=== PATIENT | female | born 1975 | race Caucasian/White ===

== ENCOUNTER 2022-05-11 14:06 | Outpatient (CLI) | payer OTHER, SELFPAY ==
[2022-05-11 17:21] LABS: Albumin* 4.3 g/dL (3.3-5.0); Chloride* 101 mmol/L (96-114); Sodium* 138 mmol/L (135-149)
[2022-05-11 17:23] LABS: Cholesterol* 192 mg/dL (90-199)
[2022-05-11 17:24] LABS: Alanine Aminotransferase* 18 U/L (4-35); Alkaline Phosphatase* 72 U/L (40-150); Aspartate Amino Transferase* 24 U/L (12-35); Bilirubin Total* 0.3 mg/dL (0.1-1.5); Blood Urea Nitrogen* 11 mg/dL (5-24); Carbon Dioxide* 27 mmol/L (20-32); Creatinine* 0.5 mg/dL (0.5-1.5); Estimated Glomerular Filt Rate 118 ml/min; Glucose* 162 mg/dL (60-115); Total Protein* 7.1 g/dL (6.0-8.3); Triglycerides* 204 mg/dL (40-149)
[2022-05-11 17:25] LABS: Calcium* 9.2 mg/dL (8.4-10.6); HDL Cholesterol* 50 mg/dL (>=50); LDL Cholesterol Calculated 101 mg/dL (<100)
[2022-05-11 17:52] LABS: Creatinine Urine 12.3 mg/dL
[2022-05-11 17:55] LABS: Microalbumin Creatinine Ratio 80 mg/g (0-30); Microalbumin Urine < 1 mg/dL
[2022-05-11 18:14] LABS: Vitamin B12* 903 pg/mL (243-894)
[2022-05-11 19:44] LABS: Hemoglobin A1C* 8.54 % (0-5.6)
[2022-05-12 16:09] LABS: Ferritin* 17.4 ng/mL (6.24-137.0)
== END 2022-05-11 14:07 | disposition home or self-care (01) ==
PROVIDERS: PCP Family Medicine; Visit Provider Family Medicine
DX: Z01.419 Encounter for gynecological examination (general) (routine) without abnormal findings (principal); E11.9 Type 2 diabetes mellitus without complications; E53.8 Deficiency of other specified B group vitamins; D64.9 Anemia, unspecified; E78.5 Hyperlipidemia, unspecified
CPT/HCPCS: 80053; 80061; 82043; 82570; 82607; 82728; 83036

== ENCOUNTER 2023-02-24 13:42 | Outpatient (CLI) | payer OTHER, SELFPAY ==
--- NOTE | 2023-02-24 14:00 | CRLHL7_ITS ---
For Patients: As a result of the Cures Act, medical imaging exams and procedure reports are released immediately into your electronic medical record. You may view this report before your referring provider. If you have questions, please contact your health care provider. BILATERAL SCREENING MAMMOGRAM WITH COMPUTER-AIDED DETECTION AND TOMOSYNTHESIS TECHNIQUE: CC and MLO views were obtained. These mammographic images have been obtained using full-field digital technique. These mammographic images were interpreted with the benefit of computer-aided detection. Breast Tomosynthesis was used in this interpretation. COMPARISON FILM: 11/25/21, 10/10/20, 02/16/19. FINDINGS: There are scattered areas of fibroglandular density IMPRESSION: There is no radiographic evidence for malignancy. ASSESSMENT: BI-RADS Category 1: Negative RECOMMENDATION: Routine screening mammogram in 1 year. A lay language report of this examination will be provided to the patient. Valeriano Sweeney M.D. Diagnostic Radiologist [email or web address] MANUELA/[email or web address] Transcribed: 5:00 p.mKeith armijo/Dictated by: Valeriano Sweeney MD @ 02/25/2023 1:18:00 PM (Electronically Signed)
== END 2023-02-24 13:43 | disposition home or self-care (01) ==
LOC: MAMMO 13:43
PROVIDERS: PCP Family Medicine; Visit Provider Family Medicine
DX: Z12.31 Encounter for screening mammogram for malignant neoplasm of breast (principal)
CPT/HCPCS: 77063; 77067

== ENCOUNTER 2023-04-27 07:30 | Outpatient (CLI) | payer OTHER, SELFPAY | END 2023-04-27 07:31 | disposition home or self-care (01) | LOC: NFLDREF 09:58 | PROVIDERS: PCP Family Medicine; Referring Provider Family Medicine; Visit Provider Family Medicine | DX: Z00.00 Encounter for general adult medical examination without abnormal findings (principal); E11.9 Type 2 diabetes mellitus without complications; D64.9 Anemia, unspecified; E53.8 Deficiency of other specified B group vitamins; E78.5 Hyperlipidemia, unspecified; R53.83 Other fatigue | CPT/HCPCS: 80053; 80061; 82043; 82570 ==

== ENCOUNTER 2023-05-03 11:45 | Outpatient (CLI) | payer OTHER, SELFPAY | END 2023-05-03 11:46 | disposition home or self-care (01) | LOC: NFLDREF 11:46 | PROVIDERS: PCP Family Medicine; Visit Provider Family Medicine | DX: R53.83 Other fatigue (principal) | CPT/HCPCS: 84439; 84443 ==

== ENCOUNTER 2024-03-07 13:45 | Outpatient (CLI) | payer OTHER, SELFPAY ==
--- NOTE | 2024-03-07 13:40 | CRLHL7_ITS ---
For Patients: As a result of the Century Cures Act, medical imaging exams and procedure reports are released immediately into your electronic medical record. You may view this report before your referring provider. If you have questions, please contact your health care provider. BILATERAL SCREENING MAMMOGRAM WITH COMPUTER-AIDED DETECTION AND TOMOSYNTHESIS TECHNIQUE: CC and MLO views were obtained. These mammographic images have been obtained using full-field digital technique. These mammographic images were interpreted with the benefit of computer-aided detection. Breast Tomosynthesis was used in this interpretation. COMPARISON FILM: 02/24/23, 11/25/21, 10/10/20. FINDINGS: There are scattered areas of fibroglandular density. IMPRESSION: There is no radiographic evidence for malignancy. ASSESSMENT: BI-RADS Category 1: Negative RECOMMENDATION: Routine screening mammogram in 1 year. A lay language report of this examination will be provided to the patient. Valeriano Sweeney M.D. Diagnostic Radiologist [email or web address] SP/Dictated by: Valeriano Sweeney MD @ 03/08/2024 9:18:00 AM (Electronically Signed)
== END 2024-03-07 13:46 | disposition home or self-care (01) ==
LOC: MAMMO 13:45
PROVIDERS: PCP Family Medicine; Visit Provider Family Medicine
DX: Z12.31 Encounter for screening mammogram for malignant neoplasm of breast (principal)
CPT/HCPCS: 77063; 77067

== ENCOUNTER 2024-05-10 07:38 | Outpatient (CLI) | payer OTHER, SELFPAY | END 2024-05-10 07:39 | disposition home or self-care (01) | LOC: NFLDREF 05-11 08:47 | PROVIDERS: PCP Family Medicine; Referring Provider Family Medicine; Visit Provider Family Medicine | DX: E11.9 Type 2 diabetes mellitus without complications (principal); E78.5 Hyperlipidemia, unspecified; R79.89 Other specified abnormal findings of blood chemistry | CPT/HCPCS: 80053; 80061; 82043; 82570; 84443 ==

== ENCOUNTER 2024-05-11 09:41 | Outpatient (CLI) | payer OTHER, SELFPAY ==
--- OUTSIDE RECORDS SUMMARY | 2024-05-11 09:47 | XMS_ITS | Clinical Summary ---
Author Organization [facility] Address [place], [place] [address] Care Team Providers Care Networking Technician Name Role Phone Unavailable Primary Care Provider Unavailabl e Allergies No known active allergies Medications Medication Sig Dispensed Refills Start Date End Date Status MULTIVITAMIN TAB take 1 tablet by oral route once daily with food 0 05/20/2007 Active ferrous sulfate 325 mg delayed release tablet Take 1 tablet by mouth once daily. 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, unspecified 05/20/2007 05/25/2007 Major depressive disorder, r ecurrent episode, unspecified 05/20/2007 07/05/2013 Anxiety state, unspecified 05/20/2007 1 09/04/2012 Migraine, unspecified, witho ut mention of intractable migraine without mention of status migrainosus 05/20/2007 06/06/2012 Overview (05/25/2007): slt abnormality on MRI consistant with migraine Immunizations Name Administration Dates Next Due Td (Age >=7 Years) 09/24/2003 Tdap 06/21/2015 Family History Medical History Relation Name Comments Hyperlipidemia Brother 1 also DM Good Health Brother 2 Diabetes Father d 72 yo Diabetes Mother b 1937 Good Health Sister 1 x 2 Hypertension Sister 2 x 1 also DM Relation Name Status Comments Brother 1 Brother 2 Father (Age 72) Complicati ons of T2DM Mother Alive Sister 1 Sister 2 Social History Tobacco Use Types Packs/Day Years Used Date Smoking Tobacco: Never Smokeless Tobacco: Never Tobacco Cessation:Counseling Given: Yes Alcohol Use Standard Drinks/Week Comments No 0 (1 standard drink = 0.6 oz pur e alcohol) Sex and Gender Information Value Date Recorded Sex Assigned at Not on file Gender Identity Not on file Sexual Orientation Not on file Obstetrics History Para Term AB IAB SAB Ectopic Multiple Livin g Live Births 4 3 3 0 1 0 1 0 0 3 Date Outcome GA Total Labor Labor/2nd/3rd Weight Sex Type Anes PTL Jeni A1 A5 Name Clin Term Term Term SAB Last Filed Vital Signs Vital Sign Reading Time Taken Comments Blood Pressure 99/62 03/09/2016 1:30 PM CDT Pulse 77 03/09/2016 1:30 PM CDT Temperature 36.9 ??C (98.4 ??F) 03/09/2016 1:30 PM CD T Respiratory Rate - - Oxygen Saturation 98% 03/09/2016 1:30 PM CDT Inhaled Oxygen Concentration - - Weight 59.3 kg (130 lb 12.8 oz) 03/09/2016 1:30 PM CDT Height 152 cm (4' 11.84) 03/09/2016 1:30 PM CDT Body Mass Index 25.68 03/09/2016 1:30 PM CDT Plan of Treatment Health Maintenance Due Date Last Done Comments HIV for age 15-65 1991 BMI (ht and wt on same day) for age 18+ 03/09/2017 03/09/2016 Depression screening for age 12+ 03/09/2017 03/09/2016 Colonoscopy through age 75 2021 Lipids for age 45-75 2021 06/21/2015, 12/20/2009, 12/20/2009, Additional history exists Mammogram for age 45-75 2021 09/24/2017 Pap test for age 21-65 05/19/2022 9, 05/19/2019, 02/14/2016, Additional history exists COVID-19 vaccine series (2022- season) 2024 Influenza for age 9-49 04/23/2024 Tetanus booster 06/21/2025 06/21/2015, 09/2003 (Completed outside of [facility]), 09/24/2003 Hepatitis C screening for age 18-79 Completed 12/20/2009 Tdap Completed 06/21/2015 Pneumococcal series for age 6-64 Aged Out No longer eligible based on patient's age to complete this topic Procedures Procedure Name Priority Date/Time Associated Diagnosis Comments TOOL SETTER THIN PREP PAP SCREEN IMAGED Routine 05/19/2019 10:15 AM CDT SCAN-MAMMOGRAPHY REPORT 09/24/2017 12:00 AM GETTER OPERATOR LIPID PANEL W REFLEX MEASURED LDL Routine 06/21/2015 9:01 AM CDT Healthcare maintenance ANTI HCV Routine 12/20/2009 5:00 PM CDT Elevated liver function tests from Last 3 Months or Most Recently Relevant to Health Maintenance Results * TOOL SETTER THIN PREP PAP SCREEN IMAGED (05/19/2019 10:15 AM CDT) Case Report Gynecologic Cytology Report ? Case: [id number] ? Authorizing Provider: ??Valeriano Mills MD ??Collected: ? 05/19/2019 1015 ? Ordering Location: ? [facility] ?Received: ?05/20/2019 1047 ? First Screen: ?Esperanza Berkowitz ? Pathologist: ? Pushpa Alberts MD ? Specimen: ?TOOL SETTER ThinPrep Vial Screening, Cervical/Vaginal ? 06/03/2019 1:00 PM CDT [facility] INTERPRETATION/ RESULT NEGATIVE FOR INTRAEPITHELIAL LESION OR MALIGNANCY (NIL) (none) 06/03/2019 1:00 PM CDT [facility] R NON-NEOPLASTIC FINDING(S) Reactive cellular changes associated with inflammation/repa ir 06/03/2019 1:00 PM CDT [facility] SPECIMEN ADEQUACY Satisfactory for evaluation Endocervical component present 06/03/2019 1:00 PM CDT [facility] HPV REQUEST HPV and PAP 06/03/2019 1:00 PM T [facility] Date of LMP 05/07/2019 06/03/2019 1:00 PM T [facility] Last Pap Date 02/14/2016 06/03/2019 1:00 PM CDT [facility] Last Pap Result NIL 9 1:00 PM [facility] Automated Review Successful 06/03/2019 1:00 PM T [facility] Comment:Specimen processed s uccessfully by automated environmental studies faculty member device, ThinPrep Imaging System, [employer] ANCILLARY TESTING TOOL SETTER HPV Ordered, Please see separate report 06/03/2019 1:00 PM T [facility] Note The pap test is a screening technique, not a diagnostic procedure. ??It is used primarily to screen for squamous cancers and precursor lesions. ??Published studies have shown that it is subject to both false negative and false positive results. ??The pap test should not be used as the sole means to diagnose or exclude pre-malignant and malignant lesions. Cytology is screened and interpreted at [facility] - [address], [place] [address] and [facility] - [address] [place] [address]; [place] [address] and [facility] - [address]; [place] [address] [address] [facility] [address]; [place] [address] 06/03/2019 1:00 PM CDT [facility]TRAL [facility] Other (Cervical/Vagina l) 05/19/2019 10:15 AM CDT 05/20/2019 10:47 AM CDT Valeriano Mills MD PATHOLOGY/CYTOLO GY [facility]TRAL LAB[facility]AT[facility] [address] [place] [address], [place] * SCAN-MAMMOGRAPHY REPORT (09/24/2017 12:00 AM GETTER OPERATOR) Anatomical Region Laterality Modality Other Scanner OTHER * (ABNORMAL) LIPID PANEL W REFLEX MEASURED LDL ([id number]) (06/21/2015 9:01 AM CDT) CHOLESTEROL,TOTAL 205(H) 100 - 199 mg/dL 06/21/2015 9:30 AM CDT [facility] TRIGLYCERIDES 127 <150 mg/dL 06/21/2015 9:30 AM CDT [facility] HDL CHOLESTEROL 55 >40 mg/dL 06/21/2015 9:30 AM CDT [facility] NON-HDL CHOLESTEROL 150(H) <145 mg/dl 06/21/2015 9:30 AM CDT [facility] CHOL/HDL RATIO 3.73 <4.50 06/21/2015 9:30 AM CDT [facility] LDL CHOLESTEROL 125 <=130 mg/dL 06/21/2015 9:30 AM CDT [facility] PATIENT STATUS FASTING 06/21/2015 9:30 AM CDT [facility] Blood specimen (specimen) BLOOD SPECIMEN / Unknown Venipuncture / Unknown 06/21/2015 9:01 AM CDT 06/21/2015 9:01 AM CDT Amita Reji Beverly MD CHEMISTRY [facility] [address] [place] [address], * ANTI HCV (12/20/2009 5:00 PM CDT) ANTI HCV Non-reacti ve [facility] Blood specimen (specimen) BLOOD SPECIMEN / Unknown 12/20/2009 5:00 PM CDT 12/21/2009 12:34 PM CDT Moose Ibanez MD SEND OUTS [facility] INTERNAL ZIP [id number] [place] [phone] from Last 3 Months or Most Recently Relevant to Health Maintenance
[2024-05-13 02:41] LABS: HPV Source Cervical; HPV, High Risk by TMA Not Detected
[2024-05-19 14:02] LABS: PAP Reflex Billing Y; Pap Test Reviewed by Path Done
== END 2024-05-11 09:42 | disposition home or self-care (01) ==
PROVIDERS: PCP Family Medicine; Visit Provider Family Medicine
DX: Z11.51 Encounter for screening for human papillomavirus (HPV) (principal); Z12.4 Encounter for screening for malignant neoplasm of cervix
CPT/HCPCS: 87624; 87625; 88141; 88142

== ENCOUNTER 2024-08-18 07:44 | Outpatient (CLI) | payer OTHER, SELFPAY | END 2024-08-18 07:45 | disposition home or self-care (01) | LOC: NFLDREF 08-23 02:21 | PROVIDERS: PCP Family Medicine; Referring Provider Family Medicine; Visit Provider Family Medicine | DX: E78.5 Hyperlipidemia, unspecified (principal); E11.9 Type 2 diabetes mellitus without complications; Z79.84 Long term (current) use of oral hypoglycemic drugs | CPT/HCPCS: 80061; 84450; 84460 ==

== ENCOUNTER 2025-05-25 08:02 | Outpatient (CLI) | payer BC, SELFPAY | END 2025-05-25 08:03 | disposition home or self-care (01) | LOC: NFLDREF 05-28 11:52 | PROVIDERS: PCP Family Medicine; Referring Provider Family Medicine; Visit Provider Family Medicine | DX: E11.9 Type 2 diabetes mellitus without complications (principal); E78.5 Hyperlipidemia, unspecified | CPT/HCPCS: 80053; 80061; 82043; 82570 ==

== ENCOUNTER 2025-07-09 06:37 | Outpatient (CLI) | payer BC, SELFPAY ==
--- NOTE | 2025-07-09 08:25 | P.ANES_ITS ---
Anesthesia Charges Start Date/Time Anesthesia Start Date: 07/09/25 Anesthesia Start Time: 07:23 Stop Date/Time Anesthesia Stop Date: 07/09/25 Anesthesia Stop Time: 07:50 Coding CPT Codes CPT Codes: KHANH LWR INTST NDSC NOS - 85485 ([id number]) P2 - PATIENT W/MILD SYST DISEASE, QK - THIRD COOK 2-4 CNCRNT ANES PROC, QX - CAN INTAKE WORKER SVC W/ MD MED DIRECTION
--- NOTE | 2025-07-09 08:25 | W.ANESCHARGE ---
Anesthesia Charges Start Date/Time Anesthesia Start Date: 07/09/25 Anesthesia Start Time: 07:23 Stop Date/Time Anesthesia Stop Date: 07/09/25 Anesthesia Stop Time: 07:50 Coding CPT Codes CPT Codes: KHANH LWR INTST NDSC NOS - 30018 ([id number]) P2 - PATIENT W/MILD SYST DISEASE, QK - [employer] HCM CONSULTANT 2-4 CNCRNT ANES PROC, QX - WOUND CARE SPECIALIST SVC W/ MD MED DIRECTION
--- NOTE | 2025-07-09 13:00 | P.ANES_ITS ---
Anesthesia Charges Start Date/Time Anesthesia Start Date: 07/09/25 Anesthesia Start Time: 07:23 Stop Date/Time Anesthesia Stop Date: 07/09/25 Anesthesia Stop Time: 07:50 Coding CPT Codes CPT Codes: ANES LWR INTST NDSC NOS - [id number] ([id number]) QX - WATER SOFTENER SERVICER AND INSTALLER SVC W/ MD MED DIRECTION, QK - DIRECTOR OF PHYSICAL THERAPY 2-4 CNCRNT ANES PROC, P2 - PATIENT W/MILD SYST DISEASE
--- NOTE | 2025-07-09 13:00 | W.ANESCHARGE ---
Anesthesia Charges Start Date/Time Anesthesia Start Date: 07/09/25 Anesthesia Start Time: 07:23 Stop Date/Time Anesthesia Stop Date: 07/09/25 Anesthesia Stop Time: 07:50 Coding CPT Codes CPT Codes: ANES LWR INTST NDSC NOS - [id number] ([id number]) QX - VAMP PRESSER SVC W/ MD MED DIRECTION, QK - PMO ANALYST 2-4 CNCRNT ANES PROC, P2 - PATIENT W/MILD SYST DISEASE
== END 2025-07-09 06:38 | disposition home or self-care (01) ==
LOC: OP CLINIC 06:40
PROVIDERS: PCP Family Medicine; Visit Provider Internal Medicine
DX: Z12.11 Encounter for screening for malignant neoplasm of colon (principal)
CPT/HCPCS: 00811; 00812; 45378; J2704